=== PATIENT | male | born 1975 | race Caucasian/White ===

== ENCOUNTER 2019-05-13 11:06 | Day surgery (SDC) | payer OTHER ==
[~2019-05-13] VITALS: Ht 177.8 cm; Wt 125.6 kg
[~2019-05-13 11:06] MED LIST: BUSP5 PO; Cymbalta20 MG PO; FAMO20 PO; OXYC10ER PO; OXYC10TA19; Omeprazole20 M1; PANT40 PO; PREG150 PO; PREG75 PO; Prozac20 MG; Ranitidine HCl300 M1 PO
== END 2019-05-13 13:15 | disposition home or self-care (01) ==
LOC: ORSCSDS 11:06
PROVIDERS: Internal Medicine Gastroenterology
PROC: 0DJ08ZZ Inspection of Upper Intestinal Tract, Via Natural or Artificial Opening Endoscopic (ICD-10-PCS; principal; 2019-05-13 12:30)
DX: K21.9 Gastro-esophageal reflux disease without esophagitis (principal); R07.9 Chest pain, unspecified; K20.8 Other esophagitis; E66.9 Obesity, unspecified; Z68.39 Body mass index [BMI] 39.0-39.9, adult; Z87.891 Personal history of nicotine dependence; Z79.899 Other long term (current) drug therapy
CPT/HCPCS: 88305; 88342; J1885; J2704; J7120

== ENCOUNTER 2019-08-15 09:26 | Emergency (ER) | payer OTHER ==
[~2019-08-15] VITALS: Ht 177.8 cm; Wt 120.2 kg
[2019-08-15] MEDS ORDERED: Vistaril25 MG PO (10:03)
[2019-08-15] MEDS ORDERED: Flonase 0.05% N16 GM (10:46)
[2019-08-15] MEDS ORDERED: ONDA4ODT MM (10:46)
== END 2019-08-15 11:06 | disposition home or self-care (01) ==
LOC: ER 09:26
DX: J02.8 Acute pharyngitis due to other specified organisms (principal); J30.2 Other seasonal allergic rhinitis; F41.9 Anxiety disorder, unspecified; F32.9 Major depressive disorder, single episode, unspecified; K21.9 Gastro-esophageal reflux disease without esophagitis; G89.29 Other chronic pain; Z79.899 Other long term (current) drug therapy
CPT/HCPCS: 71045; 99283-25